=== PATIENT | female | born 1970 | race Caucasian/White ===

== ENCOUNTER 2019-01-23 12:28 | Emergency (ER) | payer OTHER ==
[2019-01-23 12:40] VITALS: BP 117/76; PULSE 77; TEMP 98; BMI 29.2
--- NOTE | 2019-01-23 12:58 | PDOC ---
History of Present Illness <Kiel Rausch - Last Filed: 01/23/19 14:10> - History of Present Illness Initial Comments: 01/23/19 12:58 Pt is a 48yo F w/no PMH presenting from home c/o L ankle injury. Pt was walking in her yard about a couple hours ago and stepped on a small pipe in the backyard , rolled her ankle and heard a crunch as she fell to the ground. She could not bear weight and crawled to her home to get her 's help. Has been unable to bear weight since. Pt used ice and took naproxen with significant improvement in pain. Pain is to lateral and medial side of ankle, worse on medial side. Endorses swelling. Denies numbness/tingling, weakness, popping sound, lacerations, ecchymoses, foot pain, knee pain, other injuries, head trauma. Pt states she has an IUD, recent period, and is sure she's not - states she is fine doing the x-ray without a test. PCP - none MH - none Meds - none Surg - c-sections All - NKDA <Haydee Salcedo - Last Filed: 01/23/19 14:40> - General Chief Complaint: Injury Stated Complaint: LEFT ANKLE INJURY Time Seen by Provider: 01/23/19 12:31 Past History <Kiel Rausch - Last Filed: 01/23/19 14:10> - Past Medical History COPD: No - Suicide/Smoking/Psychosocial Hx Smoking History: Never smoked Have you smoked in the past 12 months: No Information on smoking cessation initiated: No Hx Alcohol Use: (social) <Haydee Salcedo - Last Filed: 01/23/19 14:40> - Past Medical History Allergies/Adverse Reactions: Allergies Allergy/AdvReac Type Severity Reaction Status Date / Time No Known Allergies Allergy Verified 01/23/19 12:30 Home Medications: Ambulatory Orders NK [No Known Home Medication] 01/23/19 Review of Systems - Review of Systems Comments:: 01/23/19 13:26 Constitutional: Negative for chills, fever. Eyes: Negative for visual disturbance. Respiratory: Negative for shortness of breath. Cardiovascular: Negative for chest pain. Gastrointestinal: Negative for abdominal pain, nausea, and vomiting. Musculoskeletal: Positive for left ankle pain. Negative for back pain and neck pain. Skin: Negative for rash. Neurological: Negative for dizziness, numbness and headaches. <Haydee Salcedo - Last Filed: 01/23/19 14:40> *Physical Exam - Vital Signs Last Vital Signs Temp Pulse Resp BP Pulse Ox 98 F 77 18 117/76 97 01/23/19 12:28 01/23/19 12:28 01/23/19 12:28 01/23/19 12:28 01/23/19 12:28 <Kiel Rausch - Last Filed: 01/23/19 14:10> - Vital Signs Last Vital Signs Temp Pulse Resp BP Pulse Ox 98 F 77 18 117/76 97 01/23/19 12:28 01/23/19 12:28 01/23/19 12:28 01/23/19 12:28 01/23/19 12:28 - Physical Exam Comments: 01/23/19 13:27 Gen: Alert, NAD, comfortable-appearing, in wheelchair HEENT: PERRL, MMM, NCAT. No conjunctival pallor. Sclera are non-icteric. CV: Regular rate and rhythm. No murmurs, rubs, or gallops. PULM: No resp distress. CTAB, no wheezes, rales, or rhonchi. ABD: soft, NT/ND, no rebound tenderness or guarding. MSK: No bony deformities. 2+ pulses in all extremities. NEURO: AAOx3. PERRL. No gross CN deficits. Strength and sensation grossly intact throughout. EXTREMITIES: No cyanosis. No clubbing. No edema. No calf tenderness. LEFT LOWER EXTEMITY: + soft tissue swelling around ankle, TTP along fibula and lateral malleolus and medial malleolus worst over medial malleolus, unable to bear weight, decreased ROM of ankle in all directions 2/2 pain. No bony or soft tissue deformity. No TTP on midfoot or base of 5th metatarsal. No anterior, posterior or subtalar laxity. No midfoot laxity. Capillary refill <2 seconds to all digits. 2+ DP/PT pulses. Full ROM of all toes and knee. Sensation to light touch intact in ankle, foot, and all digits. PSYCH: Normal mood and thought pattern. SKIN: Warm and dry. Normal capillary refill. No rashes. No jaundice. <Haydee Salcedo - Last Filed: 01/23/19 14:40> ED Treatment Course - RADIOLOGY Radiology Studies Ordered: Category Date Time Status ANKLE-LEFT [RAD] Stat Radiology 01/23/19 12:46 Ordered LEG TIB/FIB-LEFT [RAD] Stat Radiology 01/23/19 12:46 Ordered <Haydee Salcedo - Last Filed: 01/23/19 14:40> Medical Decision Making - Medical Decision Making 01/23/19 13:27 Pt is a 48yo F w/no PMH presenting from home with L ankle injury with swelling and TTP to medial and lateral malleolus. Per Resighini Ankle Rules, acute fracture cannot be ruled out - obtain X-rays. Presentation consistent with ankle strain/ sprain. Hemodynamically stable, no other injuries, neurovascularly intact, no joint laxity noted. No pain or abnormalities on physical exam of L knee or L foot. Pt already took Naproxen and denies need for further pain medication. -XR L tib/fib and ankle -ESTELA wrap and crutches -Dispo: d/c home with Ortho f/u pending XR XRs: no acute fx or dislocation ESTELA wrap applied and crutches given. Discussed RICE and how to use crutches and wrap. Will dc home with supportive treatment and ortho f/u. Return precautions given. Pt understands all dc instructions and all questions were answered. <Haydee Salcedo - Last Filed: 01/23/19 14:40> *DC/Admit/Observation/Transfer <Kiel Rausch - Last Filed: 01/23/19 14:10> - Discharge Dispostion Decision to Admit order: No <Haydee Salcedo - Last Filed: 01/23/19 14:40> Diagnosis at time of Disposition: Left ankle sprain - Discharge Dispostion Disposition: HOME Condition at time of disposition: Stable - Referrals Referrals: Robson Matthews MD [Staff Physician] - - Patient Instructions Printed Discharge Instructions: How to Use Crutches, DI for Ankle Sprain Additional Instructions: You have been seen in the Emergency Department for your left ankle pain. Your X- Ray shows no fracture or dislocation. You most likely have a sprain. If you experience pain, you can take Tylenol or Ibuprofen as directed on the medication bottle, but do not exceed 3g of Ibuprofen or 4g of Tylenol a day. We have given you a referral to Dr. Matthews, an Orthopedic Surgeon. Call his office tomorrow to make a follow-up appointment for further evaluation. Follow the RICE protocol to reduce swelling and help the healing process: R - Rest the injured ankle. Use the crutches until you see the Orthopedist. Once it starts to feel better, try to put some weight on your ankle again, starting with a small amount of weight and gradually increasing this amount as you feel comfortable. I - Ice. If the ankle is swollen or painful, apply ice wrapped in a towel (or a bag of frozen peas wrapped in a thin towel) on the ankle for approximately 10 minutes at a time. Then remove the ice pack and allow the skin to return to normal temperature before re-applying the ice pack (to avoid frostbite). Continue this while the ankle is still swollen; do not apply heat while the ankle is swollen. C - Compress. A tensor/ESTELA bandage can be wrapped around the ankle to provide more support over the lengthy healing period. This bandage can be removed when applying ice to the ankle. E - Elevate the injured ankle. This can be done by putting your leg up on a chair when sitting down (watching TV, reading, eating dinner, etc). Elevating the ankle uses gravity to drain the swelling away from the ankle. Return to the ED immediately if you experience pain not controlled by over the counter medications, dizziness, numbness/tingling, weakness, or any other new or worsening symptom.
--- NOTE | 2019-01-23 14:27 | PDOC ---
Attending Attestation - Resident Resident Name: Haydee Salcedo - ED Attending Attestation I have performed the following: I have examined & evaluated the patient, The case was reviewed & discussed with the resident, I agree w/resident's findings & plan, Exceptions are as noted - HPI HPI: 01/23/19 14:24 48 yo F with no past medical history presents with twisting of left ankle. Today, went to walk outside and twisted her left ankle. No numbness or weakness. But reports pain on ambulation. Came into ED for an evaluation. - Physicial Exam PE: 01/23/19 14:27 GENERAL: Awake, alert, and fully oriented, in no acute distress HEAD: No signs of trauma EYES: EOMI, sclera anicteric, conjunctiva clear ENT: Auricles normal inspection, hearing grossly normal, nares patent NECK: Normal ROM, supple, EXTREMITIES: LLE: 2+ Dp pulse. sensation intact throughout. Medial and lateral malleolus tenderness and swelling appreciated. no ecchymosis or lacerations or abrasion. No joint laxity appreciated. NEUROLOGICAL: Cranial nerves II through XII grossly intact. Normal speech SKIN: Warm, Dry, normal turgor, no rashes or lesions noted. - Medical Decision Making 01/23/19 14:28 Vital Signs Temp Pulse Resp BP Pulse Ox 98 F 77 18 117/76 97 01/23/19 12:28 01/23/19 12:28 01/23/19 12:28 01/23/19 12:28 01/23/19 12:28 Xray reviewed by me, pending official radiology read. No fracture or dislocation. Likely ankle sprain. Weight bearing as tolerated (we gave patient crutches). RICE therapy and supportive care. ESTELA wrap applied. Follow up with orthopedics.
== END 2019-01-23 14:35 | disposition home or self-care (01) ==
LOC: FER 12:28
DX: S93.402A Sprain of unspecified ligament of left ankle, initial encounter (principal); X58.XXXA Exposure to other specified factors, initial encounter; Y93.9 Activity, unspecified; Y92.89 Other specified places as the place of occurrence of the external cause
CPT/HCPCS: 73590-TC-LT-FY; 73610-TC-LT-FY; 99283-25

== ENCOUNTER 2022-11-15 15:28 | Emergency (ER) | payer BC, OTHER ==
[2022-11-15 15:57] VITALS: BP 126/82; PULSE 60; RESP 18; TEMP 99
[2022-11-15] MEDS ORDERED: SODIUM CHLORIDE 1,000 ML IV ONE ×2 (16:04→17:14)
[2022-11-15] MEDS ORDERED: FAMOTIDINE 20 MG/50 ML IVPB 20 MG/50 ML MG IVPB ONE ×2 (16:04→16:09)
[2022-11-15] MEDS ORDERED: ONDANSETRON 4 MG/2 ML VIAL IVPB ONE (16:04)
[2022-11-15] MEDS ORDERED: ONDANSETRON 4 MG/2 ML VIAL ONE (16:09)
[2022-11-15 16:34] LABS: HEMATOCRIT 39.4 % (32.4-45.2); HEMOGLOBIN 13.3 G/dL (10.7-15.3); MCH 30.8 pg (25.7-33.7); MCHC 33.7 g/dl (32.0-36.0); MEAN CELL VOLUME 91.5 fl (80-96); MEAN PLT VOLUME 11.2 fl (7.5-11.1); PLATELET COUNT 212.1 10^3/uL (134-434); RBC 4.31 10^6/uL (3.60-5.2); RDW 13.3 % (11.6-15.6); WHITE BLOOD COUNT 6.6 10^3/uL (4.0-10.8)
[2022-11-15 16:56] LABS: ALBUMIN 3.8 g/dl (3.4-5.0); BILIRUBIN,TOTAL 0.5 mg/dl (0.2-1); CALCIUM 8.7 mg/dl (8.5-10); CREATININE 0.6 mg/dl (0.55-1.3); POTASSIUM 3.8 mmol/L (3.5-5.1); TOT PROT 6.7 g/dl (6.4-8.2)
[2022-11-15 17:15] LABS: PLATELET ESTIMATE ADEQUATE
[2022-11-15 17:19] LABS: EPITHELIAL CELLS FEW /hpf
== END 2022-11-15 18:19 | disposition home or self-care (01) ==
LOC: FER 15:28
PROC: 3E033GC Introduction of Other Therapeutic Substance into Peripheral Vein, Percutaneous Approach (ICD-10-PCS; principal; 2022-11-15)
PROC: 3E033GC Introduction of Other Therapeutic Substance into Peripheral Vein, Percutaneous Approach (ICD-10-PCS; 2022-11-15)
PROC: 3E0337Z Introduction of Electrolytic and Water Balance Substance into Peripheral Vein, Percutaneous Approach (ICD-10-PCS; 2022-11-15)
PROC: 3E0337Z Introduction of Electrolytic and Water Balance Substance into Peripheral Vein, Percutaneous Approach (ICD-10-PCS; 2022-11-15)
DX: R11.2 Nausea with vomiting, unspecified (principal); R19.7 Diarrhea, unspecified; R10.9 Unspecified abdominal pain; R14.0 Abdominal distension (gaseous); K52.9 Noninfective gastroenteritis and colitis, unspecified
CPT/HCPCS: 36415; 80053; 81003; 81015; 85027; 99284-25